=== PATIENT | male | born 1960 | race Caucasian/White ===

== ENCOUNTER 2017-09-01 12:33 | Emergency (ER) | payer OTHER ==
[2017-09-01] MEDS ORDERED: Lidocaine 1% 20 ML MDV ONE (12:42)
[2017-09-01] MEDS ORDERED: Bacitracin Zinc 1 Packet ONE (13:20)
[2017-09-01] MEDS ORDERED: Adacel (T-DAP) 0.5 ML VIAL ONE (13:20)
== END 2017-09-01 13:50 | disposition home or self-care (01) ==
LOC: MADERS 12:33
DX: S61.211A Laceration without foreign body of left index finger without damage to nail, initial encounter (principal); F17.200 Nicotine dependence, unspecified, uncomplicated; W26.8XXA Contact with other sharp object(s), not elsewhere classified, initial encounter
CPT/HCPCS: 90471; 90715; J2001

== ENCOUNTER 2020-01-08 06:53 | Emergency (ER) | payer OTHER ==
[2020-01-08] MEDS ORDERED: Ondansetron ODT 4 MG TAB ONE (07:49)
[2020-01-09 14:12] LABS: SARS-CoV-2 MS2 Positive; SARS-CoV-2 N Gene Negative; SARS-CoV-2 S Gene Negative; SARS-CoV-2 orf1ab Negative
== END 2020-01-08 08:05 | disposition home or self-care (01) ==
LOC: MADERS 06:53
DX: A08.4 Viral intestinal infection, unspecified (principal); L23.7 Allergic contact dermatitis due to plants, except food; F17.210 Nicotine dependence, cigarettes, uncomplicated; Z20.828 Contact with and (suspected) exposure to other viral communicable diseases; Z79.899 Other long term (current) drug therapy
CPT/HCPCS: 87635; 96372; 99283; J1040; Q0162; U0003